=== PATIENT | female | born 1935 | race Caucasian/White ===

== ENCOUNTER 2016-10-08 12:23 | Inpatient (IN) | payer OTHER ==
[~2016-10-08] VITALS: Ht 152.4 cm; Wt 65.8 kg
--- NOTE | ~2016-10-08 | EKG ---
[address] [place] [address] ELECTROCARDIOGRAM REPORT Name: GÓMEZ BARONE Room #: 438-P [facility] IN ..#: [id number] Admission: 10/08/16 Attend Phys: Artemio Smith MD Discharge: 10/10/16 Date of : 35 Report #: [id number] THIS REPORT FOR: //name// [facility] ED Test Date: 2016-10-08 Test Time: 12:53:06 Pat Name: GÓMEZ BARONE Department: Room: [facility] Gender: F [employer] Loader: VIRIDIANA : 1935 Requested By: Maegan Ricks Order Number: [id number] MD: Leonardo Romero Measurements Intervals Badger Rate: 96 P: 40 MO: 192 QRS: -36 QRSD: 125 T: 10 QT: 364 QTc: 460 Interpretive Statements Sinus rhythm Right bundle branch block Compared to ECG 01/14/2011 17:35:48 Right bundle-branch block now present Electronically Signed On 10-10-2016 12:00:07 CDT by Leonardo Romero [email or web address] <ELECTRONICALLY SIGNED> By: Leonardo Romero MD, [facility] 10/10/16 1200 1253 52 Leonardo Romero MD, [facility] /EPI
--- NOTE | ~2016-10-08 | H ---
[facility] [place] [address] HISTORY AND PHYSICAL Name: GÓMEZ BARONE Room #: 438-P [facility] IN M.R.#: [id number] Admission: 10/08/16 Attend Phys: Artemio Smith MD Discharge: Date of : 35 Report #: [id number] THIS REPORT FOR: //name// CC: Artemio Smith DATE OF SERVICE: 10/09/2016 CHIEF COMPLAINT: Cough. HISTORY OF PRESENT ILLNESS: The patient is an 81-year-old female, who has had an outpatient treatment for pneumonia on oral antibiotics on several occasions. Recently, she developed a cough and a near-syncopal event. She was standing still, became hot, sweaty and short of breath. She sat down, felt better, but then became more weak afterwards. She is diabetic. PAST MEDICAL HISTORY: Significant for: 1. Diabetes mellitus type 2. 2. Hypothyroidism. 3. Hypertension. 4. Glaucoma. 5. Prior breast cancer on the left. 6. Prior cataract extraction. MEDICATIONS: Include Actos 30 mg a day, Januvia 100 mg a day, Zestril 20 mg a day, tramadol 37.5/325 p.r.n., nabumetone 750 b.i.d., Combigan drops, glimepiride 4 mg b.i.d., Kinsley-3 fish oil, magnesium b.i.d., BuSpar 15 mg at bedtime, hydrochlorothiazide 12.5 mg a day, vitamin B6 daily, B12 daily, Synthroid 50 mcg a day. SOCIAL HISTORY: Nonsmoker, nondrinker, no recreational drugs. REVIEW OF SYSTEMS: CONSTITUTIONAL: No fevers or chills. HEENT: No headaches or visual changes. CHEST: Per above. No sputum production, just tightness in chest and throat. GASTROINTESTINAL: No nausea, vomiting, diarrhea or constipation. GENITOURINARY: No burning or frequency. EXTREMITIES: No swelling or pain. SKIN: No rashes or wounds. PHYSICAL EXAMINATION: VITAL SIGNS: Blood pressure 173/94, pulse is 118 initially, it is now down to 80, respiratory rate was 16. She is afebrile. GENERAL: The patient is awake, alert and very pleasant, sitting up at the side of the bed in no acute distress at this time. HEENT: Her mucous membranes are moist. [address] [address] HISTORY AND PHYSICAL Name: GÓMEZ BARONE Room #: 438-P [facility] IN M.R.#: [id number] Admission: 10/08/16 Attend Phys: Artemio Smith MD Discharge: Date of : 35 Report #: [id number] NECK: Supple, without adenopathy, thyromegaly or bruits. CHEST: Clear to auscultation bilaterally. CARDIOVASCULAR: Regular, without murmur. ABDOMEN: Soft, no masses. Bowel sounds are active. EXTREMITIES: Show no edema. Pulses are intact. SKIN: Intact without rashes or wounds. LABORATORY DATA: Sodium 137, potassium 4.5, chloride 101, bicarb 26, BUN 30, creatinine 1.2, glucose 226, lactic acid is 1.3, calcium is 9.4. AST 32, ALT 27. Troponin less than 0.04. ____, albumin 3.8. D-dimer is 0.78. WBC 7.5, hemoglobin 12.8, hematocrit 37.6, platelet count 210, 59 segs, 23 lymphs, and 7 monos. Chest x-ray shows no acute changes. A CTA was performed in light of the elevated D-dimer, which shows ground-glass opacity of both lungs in the bases. In the left upper lung, possibly diffuse pneumonia versus pulmonary edema, no evidence of focal mass and opacities. She has mild adenopathy. No pulmonary emboli. ASSESSMENT AND PLAN: 1. Interstitial pneumonia despite outpatient therapy. We will go ahead and admit her, start her on IV Rocephin and Zithromax. She does not tolerate steroids due to her diabetes, so we will hold off on that for now. We will add inhaled steroids, however. 2. Diabetes mellitus. Continue her home medications. 3. Mild acute kidney injury, on IV fluids. <ELECTRONICALLY SIGNED> By: Artemio Smith MD 10/10/16 0827 [id number] [id number] Artemio Smith MD /nt
[~2016-10-08 12:23] MED LIST: ACTOS15 MG PO; AMARYL4 MG PO; ASPIRIN EC81 M1 PO; ASPIRIN325 PO; BUSPAR15 MG PO; COMBIGAN EYE DR10 ML OP; FLAX SEED OIL; FOSINOPRIL-HCT1 EACH PO; GLUCOPHAGE1000 MG PO; GLUCOSAMINE SU500 MG PO; HYDROCHLOROTH12.5 MG PO; HYDROCODON-ACE1 EAC7 PO; LEVOTHYROXINE0.05 MG PO; LIPITOR10 MG PO; LOTEMAX5 ML OP; MAGNES PO; MAGNESIUM; MONOPRIL10 MG PO; NEXIUM40 MG PO; NORCO 5-325 TA1 EACH PO; OMEGA-31000 MG PO; PREVACID 30MG C30 M1 PG; UROCIT K PO; VITAMIN B-12500 MCG PO; VITAMIN B-625 MG PO; VITAMIN D1000 UNI1 PO; XALATAN2.5 ML OP
[2016-10-08 12:24] VITALS: BP 173/94
[2016-10-08 13:15] LABS: ABSOLUTE NEUTROPHILS 4.4 thou/uL (1.4-8.2); EOSINOPHILS 9.8 % (0.0-3.0); HEMATOCRIT 37.6 % (37.0-47.0); HEMOGLOBIN 12.8 gm/dL (12.0-15.0); LYMPHOCYTES 23.1 % (24.0-44.0); MANUAL DIFF NO; MONOCYTES 7.1 % (1.0-8.0); PLATELET COUNT 210 thou/uL (150-400); RBC 3.88 mil/uL (4.20-5.00); RDW 12.7 % (10.5-14.5); WBC 7.5 thou/uL (4.0-11.0)
[2016-10-08 13:26] LABS: ANION GAP 10 mmol/L (7-16); BUN 30 mg/dL (7-18); CALCIUM 9.4 mg/dL (8.5-10.1); CHLORIDE 101 mmol/L (98-107); CO2 26 mmol/L (21-32); CREATININE 1.2 mg/dL (0.6-1.0); GLUCOSE 226 mg/dL (74-106); POTASSIUM 4.5 mmol/L (3.5-5.1); SODIUM 137 mmol/L (136-145)
[2016-10-08 13:37] LABS: ALBUMIN 3.8 g/dL (3.4-5.0); ALKALINE PHOSPHATASE 61 U/L (46-116); NT-PRO BRAIN NAT PEPTIDE 287 pg/mL (<300); SGOT 32 U/L (15-37); SGPT 27 U/L (30-65); TOTAL BILIRUBIN 0.5 mg/dL (<0.1-1.0); TOTAL PROTEIN 8.1 g/dL (6.4-8.2); TROPONIN-I < 0.04 ng/mL (<0.04-0.07)
[2016-10-08] MEDS ORDERED: JANUVIA100 MG PO (13:39)
[2016-10-08] MEDS ORDERED: ACTOS 30 MG TAB30 MG PO (13:39)
[2016-10-08] MEDS ORDERED: LISINOPRIL20 MG PO (13:40)
[2016-10-08] MEDS ORDERED: NABUMETONE 750750 M1 PO (13:40)
[2016-10-08] MEDS ORDERED: ULTRACET TABLET1 TAB PO (13:40)
[2016-10-08 17:00] VITALS: BP 150/75
[2016-10-08 18:00] VITALS: BP 171/79
[2016-10-08 18:23] VITALS: BP 167/66
[2016-10-08 19:14] VITALS: BP 152/73
[2016-10-08] MEDS ORDERED: TRAZODONE HCL50 MG PO (20:24)
[2016-10-09 05:30] VITALS: BP 134/50
[2016-10-09 08:00] VITALS: BP 160/58
[2016-10-09 16:00] VITALS: BP 145/64
[2016-10-09 19:10] VITALS: BP 152/59
[2016-10-10 03:35] VITALS: BP 142/55
[2016-10-10 08:46] VITALS: BP 146/59
[2016-10-10] MEDS ORDERED: AZITHROMYCIN 2250 MG PO (08:48)
[2016-10-10] MEDS ORDERED: CEFDINIR300 MG PO (08:48)
[2016-10-10 10:49] VITALS: BP 146/59
== END 2016-10-10 11:56 | disposition home or self-care (01) | DRG 196 ==
LOC: ER 12:23 → 4S 16:26 → EROBS 16:26 → 4S 17:14
PROVIDERS: Physician Assistant
DX: J84.9 Interstitial pulmonary disease, unspecified (principal); N17.0 Acute kidney failure with tubular necrosis; E03.9 Hypothyroidism, unspecified; I10 Essential (primary) hypertension; H40.9 Unspecified glaucoma; E11.65 Type 2 diabetes mellitus with hyperglycemia; E86.0 Dehydration; Z90.710 Acquired absence of both cervix and uterus; Z90.12 Acquired absence of left breast and nipple; Z98.42 Cataract extraction status, left eye; Z88.7 Allergy status to serum and vaccine; Z98.41 Cataract extraction status, right eye; Z85.3 Personal history of malignant neoplasm of breast; Z79.4 Long term (current) use of insulin
CPT/HCPCS: 10100

== ENCOUNTER → 2017-04-16 | Outpatient (CLI) | payer OTHER ==
[~2017-04-16] MED LIST changes: +ACTOS 30 MG TAB30 MG PO; +AZITHROMYCIN 2250 MG PO; +CEFDINIR300 MG PO; +JANUVIA100 MG PO; +LISINOPRIL20 MG PO; +NABUMETONE 750750 M1 PO; +TRAZODONE HCL50 MG PO; +ULTRACET TABLET1 TAB PO
== END ==
LOC: RAD 09:34
DX: M17.0 Bilateral primary osteoarthritis of knee (principal); M16.11 Unilateral primary osteoarthritis, right hip; M11.262 Other chondrocalcinosis, left knee; M85.88 Other specified disorders of bone density and structure, other site; M76.51 Patellar tendinitis, right knee; M25.551 Pain in right hip

== ENCOUNTER 2019-01-11 07:33 | Emergency (ER) | payer OTHER ==
[~2019-01-11] VITALS: Ht 152.4 cm; Wt 68.0 kg
[2019-01-11] MEDS ORDERED: JARDIANCE10 MG PO (08:52)
[2019-01-11] MEDS ORDERED: BUSPAR30 MG PO (08:53)
[2019-01-11] MEDS ORDERED: KLOR-CON 1010 MEQ PO (08:53)
[2019-01-11] MEDS ORDERED: NABUMETONE 750750 M1 PO (08:53)
[2019-01-11] MEDS ORDERED: PYRIDOXINE HCL50 MG PO (08:54)
[2019-01-11] MEDS ORDERED: TRAVATAN Z5 ML OPHTHALMIC (08:55)
[2019-01-11] MEDS ORDERED: LANTUS100 UNIT/M SUBQ (09:07)
[2019-01-11 10:10] VITALS: BP 160/77
== END 2019-01-11 10:10 | disposition home or self-care (01) ==
LOC: ER 07:33
DX: G89.29 Other chronic pain (principal); M25.551 Pain in right hip; M25.561 Pain in right knee; I10 Essential (primary) hypertension; E03.9 Hypothyroidism, unspecified; E11.9 Type 2 diabetes mellitus without complications; Z90.89 Acquired absence of other organs; Z90.710 Acquired absence of both cervix and uterus; Z85.3 Personal history of malignant neoplasm of breast; Z98.41 Cataract extraction status, right eye; Z98.42 Cataract extraction status, left eye; Z87.442 Personal history of urinary calculi; Z90.12 Acquired absence of left breast and nipple; Z88.7 Allergy status to serum and vaccine